=== PATIENT | female | born 1995 | race Caucasian/White ===

== ENCOUNTER 2020-09-07 12:17 | Emergency (ER) | payer OTHER, BC ==
--- NOTE | 2020-09-07 12:47 | EDM.PDOC ---
ED HPI GENERAL MEDICAL PROBLEM - General Chief Complaint: Chest Pain Stated Complaint: CHEST PAIN AND ARM PAIN Time Seen by Provider: 09/07/20 12:25 Source of Information: Reports: Patient, RN Notes Reviewed History Limitations: Reports: No Limitations - History of Present Illness INITIAL COMMENTS - FREE TEXT/NARRATIVE: Patient is a 24-year-old female who presents to the ER for chest pain. The patient notes about 1 hour prior to arrival, she developed sharp lancinating chest pain/tightness to her left chest, that radiated down her left arm, she states that this resolved in about 2 minutes. She is pain-free at the time. She did have some nausea with this but no shortness of breath, she has had no fevers or chills, cough or other sick-like symptoms prior to this. The patient herself denies any sort of cardiac history that she has. She thinks that her maternal uncle may have from heart issues in his 30s, but she also notes that he had problems with alcoholism. She has no regular care provider as they recently moved here from [place]. Patient denies any chance of . - Related Data Allergies Allergy/AdvReac Type Severity Reaction Status Date / Time No Known Allergies Allergy Verified 09/07/20 12:25 Home Meds: Home Meds . [No Known Home Meds] 09/07/20 [History] Past Medical History - Past Health History Medical/Surgical History: Denies Medical/Surgical History Social & Family History - Tobacco Use Tobacco Use Status *Q: Never Tobacco User Second Hand Smoke Exposure: No - Caffeine Use Caffeine Use: Reports: None - Recreational Drug Use Recreational Drug Use: No ED ROS GENERAL - Review of Systems Review Of Systems: Comprehensive ROS is negative, except as noted in HPI. ED EXAM, GENERAL - Physical Exam Exam: See Below Exam Limited By: No Limitations General Appearance: Alert, WD/WN, No Apparent Distress Respiratory/Chest: No Respiratory Distress, Lungs Clear, Normal Breath Sounds, No Accessory Muscle Use, Other (palpation of left chest does show that she has tenderness around the 3-4th rib distribution ) Peripheral Pulses: 2+: Radial (L), Radial (R) Extremities: Normal Inspection, Normal Capillary Refill Neurological: Alert, Oriented, Normal Cognition, No Motor/Sensory Deficits Psychiatric: Normal Affect, Normal Mood Skin Exam: Warm, Dry, Normal Color, No Rash #1 Interpretation EKG Date: 09/07/20 Time: 12:32 Rhythm: NSR Rate (Beats/Min): 63 [place]: Normal P-Wave: Present QRS: Normal ST-T: Normal QT: Normal Comparison: NA - No Prior EKG EKG Interpretation Comments: No obvious ischemia or acute ST changes noted, reviewed by myself and Dr. Frazier. Course - Vital Signs Last Recorded V/S: Last Vital Signs Temp 97.9 F 09/07/20 12:23 Pulse 75 09/07/20 12:23 Resp 16 09/07/20 12:23 BP 120/77 09/07/20 12:23 Pulse Ox 100 09/07/20 12:23 - Orders/Labs/Meds Orders: Active Orders 24 hr Category Date Time Status EKG 12 Lead [EKG Documentation Completion] [RC] STAT Care 09/07/20 12:26 Active Chest 1V Frontal [CR] Stat Exams 09/07/20 12:39 Ordered Labs: Laboratory Tests 09/07/20 09/07/20 Range/Units 12:49 12:49 WBC 8.69 (3.98-10.04) K/mm3 RBC 4.94 (3.98-5.22) M/mm3 Hgb 14.0 (11.2-15.7) gm/dl Hct 43.1 (34.1-44.9) % MCV 87.2 (79.4-94.8) fl MCH 28.3 (25.6-32.2) pg MCHC 32.5 (32.2-35.5) g/dl RDW Std Deviation 42.2 (36.4-46.3) fL Plt Count 272 (182-369) K/mm3 MPV 11.0 (9.4-12.3) fl Neut % (Auto) 59.1 (34.0-71.1) % Lymph % (Auto) 29.0 (19.3-51.7) % [place] % (Auto) 10.5 (4.7-12.5) % Eos % (Auto) 1.2 (0.7-5.8) Baso % (Auto) 0.1 (0.1-1.2) % Neut # (Auto) 5.14 (1.56-6.13) K/mm3 Lymph # (Auto) 2.52 (1.18-3.74) K/mm3 [place] # (Auto) 0.91 H (0.24-0.36) K/mm3 Eos # (Auto) 0.10 (0.04-0.36) K/mm3 Baso # (Auto) 0.01 (0.01-0.08) K/mm3 Sodium 142 (136-145) mEq/L Potassium 3.6 (3.5-5.1) mEq/L Chloride 103 (98-107) mEq/L Carbon Dioxide 27 (21-32) mEq/L Anion Gap 15.6 H (5-15) BUN 7 (7-18) mg/dL Creatinine 0.7 (0.55-1.02) mg/dL Est Cr Clr Drug Dosing 98.01 mL/min Estimated GFR (MDRD) > 60 (>60) mL/min BUN/Creatinine Ratio 10.0 L (14-18) Glucose 91 (74-106) mg/dL Calcium 8.8 (8.5-10.1) mg/dL Magnesium 1.9 (1.8-2.4) mg/dl Total Bilirubin 0.4 (0.2-1.0) mg/dL AST 17 (15-37) U/L ALT 16 (14-59) U/L Alkaline Phosphatase 68 (46-116) U/L Troponin I < 0.017 (0.00-0.056) ng/mL Total Protein 7.9 (6.4-8.2) g/dl Albumin 4.2 (3.4-5.0) g/dl Globulin 3.7 gm/dL Albumin/Globulin Ratio 1.1 (1-2) - Re-Assessments/Exams Free Text/Narrative Re-Assessment/Exam: 09/07/20 12:47 Patient presents to the ED for the evaluation of her chest pain. Highly likely this could be some sort of nerve aggravation or costochondritis type pain in nature due to reproducibility on exam. Since she states her maternal uncle did have issues with his heart, EKG was obtained, get basic labs and a chest x-ray for initial evaluation. EKG showed normal sinus rhythm reviewed by myself and Dr. Frazier. 09/07/20 12:53 Chest x-ray has been obtained, demonstrates no focal abnormalities, no cardiomegaly is present, no signs of any focal infiltrates. 09/07/20 14:14 Metabolic panel is within normal limits. Trope is undetectably low. Departure - Departure Time of Disposition: 14:11 Disposition: Home, Self-Care 01 Condition: Good Clinical Impression: Atypical chest pain, Costochondritis Instructions: Costochondritis, [id number], Nonspecific Chest Pain, Adult, [id number] Referrals: PCP,None [Primary Care Provider] - Forms: ED Department Discharge Additional Instructions: You were seen in the ER today for your chest pain. Due to this being reproducible on palpation in the ER, it is likely that this is a chest wall/muscle issue. You may take 600 mg ibuprofen every 6 hours as needed for further pain or discomfort. Do not exceed more than 3200 mg ibuprofen in a 24-hour time span. If you do not have a primary care provider already, I recommend that you follow- up with a provider in our clinic, any family practice provider would be able to provide you with the services. Our clinic telephone number [phone], please call in the morning to obtain an appointment with the provider, for follow-up of your symptoms that prompted your ER visit today. Please return to the ER at any time if symptoms change or worsen. Sepsis Event Note (ED) - Evaluation Sepsis Screening Result: No Definite Risk - Focused Exam Vital Signs: Vital Signs Temp Pulse Resp BP Pulse Ox 09/07/20 12:23 97.9 F 75 16 120/77 100 - My Orders Last 24 Hours: My Active Orders 09/07/20 12:26 EKG 12 Lead [EKG Documentation Completion] [RC] STAT 09/07/20 12:39 Chest 1V Frontal [CR] Stat - Assessment/Plan Last 24 Hours: My Active Orders 09/07/20 12:26 EKG 12 Lead [EKG Documentation Completion] [RC] STAT 09/07/20 12:39 Chest 1V Frontal [CR] Stat
--- NOTE | 2020-09-08 08:29 | CR ---
Chest: Portable view of the chest was obtained. Comparison: No prior chest imaging is available. Heart size and mediastinum are normal. Lungs are clear with no acute parenchymal change. No acute bony abnormality is definitely seen. Impression: 1. Nothing acute is appreciated on portable chest x-ray. Diagnostic code #1
== END 2020-09-07 14:30 | disposition home or self-care (01) ==
LOC: JD.ED 12:17
DX: M94.0 Chondrocostal junction syndrome [Tietze] (principal); R11.0 Nausea
CPT/HCPCS: 36415; 71045; 71045-26; 80053; 83735; 84484; 85025; 93005; 93010; 99283; 99285-25